=== PATIENT | female | born 1950 | race Asian ===

== ENCOUNTER 2017-05-04 11:00 | Emergency (ER) | payer MEDICARE, BC ==
[~2017-05-04] VITALS: Ht 152.4 cm; Wt 45.0 kg
[2017-05-04] MEDS ORDERED: TRAM50TA3 PO (11:05)
[2017-05-04] MEDS ORDERED: MORPHINE SULFATE 10 MG/ML CPJ IM ONE (12:30)
[2017-05-04] MEDS ORDERED: KETOROLAC 30MG/ML VIAL IM ONE (12:30)
[2017-05-04 13:50] VITALS: BP 126/88
== END 2017-05-04 13:55 | disposition home or self-care (01) ==
LOC: ER 11:18
DX: M54.5 Low back pain (principal); G89.29 Other chronic pain; F41.9 Anxiety disorder, unspecified; F32.9 Major depressive disorder, single episode, unspecified; J45.909 Unspecified asthma, uncomplicated; Z87.891 Personal history of nicotine dependence
CPT/HCPCS: 96372; 99284; J1885; J2270